=== PATIENT | male | born 1955 | race Caucasian/White ===

== ENCOUNTER → 2017-06-05 | Day surgery (SDC) | payer BC ==
[~2017-06-05] MED LIST: AMLODIPINE BESY10 MG PO; COMBIVENT RESPIM4 GM IH; FAMOTIDINE20 MG PO; FENTANYL CITRATE/PF 100MCG/2 ML INJ ONE; KLOR-CON 1010 MEQ PO; LASIX20 MG PO; LISINOPRIL10 MG PO; MELOXICAM7.5 MG PO; MIDAZOLAM HCL 2 MG/2 ML VIAL ONE; NORCO 10-325 T1 EACH PO; PROAIR HFA INH8.5 GM INH; PROPOFOL IV EMULSION 10 MG/ML 50 ML VIAL ONE; SYMBICORT 80-10.2 GM INH
--- OUTSIDE RECORDS SUMMARY | 2017-06-05 09:49 | XMS REPORT ---
Author Organization Unknown Address [address] [place] [address] Phone [phone] Care Team Providers Care Medical Imaging Tech Name Role Phone NIMCO CRUZ MD 107 [phone] Allergies Code Code System Name Reaction Severity Status Onset Sulfa (Sulfonamide Antibiotics) Hives Moderate to Severe Active Medications Name Status Start Date Stop Date Adult Low Dose Aspirin 81 mg tablet,delayed release Take 1 tablet every day by oral route for 90 days. Active Not available amlodipine 10 mg tablet Active Not available amoxicillin 500 mg capsule Completed 05/14/2017 amoxicillin 875 mg tablet Completed 01/04/2017 azithromycin 250 mg tablet Completed 02/19/2017 benzonatate 100 mg capsule Completed 01/04/2017 furosemide 20 mg tablet Active Not available furosemide 40 mg tablet Completed 05/14/2017 guaifenesin ER 600 mg tablet, extended release 12 hr Take 1 tablet every 12 hours by oral route. Completed 05/28/2017 hydrocodone 10 mg-acetaminophen 325 mg tablet Completed 05/14/2017 hydrocodone 10 mg-chlorpheniramine 8 mg/5 mL oral susp extend.rel 12hr Completed 05/14/2017 hydrocodone 5 mg-acetaminophen 325 mg tablet Take 1 tablet every 4-6 hours by oral route for 90 days. Completed 2017 hydrocodone 7.5 mg-acetaminophen 325 mg tablet Completed 02/19/2017 ipratropium-albuterol 0.5 mg-3 mg(2.5 mg base)/3 mL nebulization soln Active Not available Klor-Con Sprinkle 10 mEq capsule,extended release Active Not available levofloxacin 500 mg tablet Completed 01/04/2017 lisinopril 40 mg tablet Take 1 tablet twice a day by oral route. Active Not available meloxicam 15 mg tablet Active Not available methylprednisolone 4 mg tablets in a dose pack Active Not available Mobic 7.5 mg tablet Take 1 tablet every day by oral route for 90 days. Completed 02/14/2017 omeprazole 40 mg capsule,delayed release Completed 05/14/2017 ProAir HFA 90 mcg/actuation aerosol inhaler Active Not available quinapril 40 mg tablet Completed 05/14/2017 Symbicort 80 mcg-4.5 mcg/actuation HFA aerosol inhaler Active Not available verapamil ER (SR) 240 mg tablet,extended release Completed 05/14/2017 Problems Name Status Onset Date Source Hypertriglyceridemia Active 09/26/2016 Obstructive Sleep Apnea of Adult Active 09/26/2016 Benign Essential Hypertension Active 09/26/2016 Asthma Active 09/26/2016 Gastroesophageal Reflux Disease Active 01/04/2017 Morbid Obesity Active 02/19/2017 Osteoarthritis of Knee Active 02/19/2017 Degeneration of Lumbar Intervertebral Disc Active 02/19/2017 Peripheral Edema Active 02/19/2017 Body Mass Index 40+ - Severely Obese Active 02/19/2017 Procedures Date Name Performed by Back Surgery Information not available 12/15/2016 XR, Chest, 2 View [facility]- [address] [address] (Work Place) Lab Results Date Name Specimen Result Interpretation Description Value Range Status Address 02/19/2017 Hepatitis C Virus RNA, Quant, PCR, Serum or Plasma Normal Hepatitis C Antibody non-reactive non-reactive Final [facility]: [address] Normal Signal to Cut-off 0.03 <1.00 Final [facility]: [address] Su[address] t[address]re [address] 02/19/2017 CBC W/ Auto Diff Wbc 6.04 x10*3/L 4.23-9.07 x10*3/ L Final [facility]: [address] Rbc 5.20 10*12/L 4.63-6.08 10*12/L Final [facility]: [address] Hemoglobin 15.20 g/dL 13.70-17.50 g/dL Final [facility]: [address] Hematocrit 46.2 % 40.1-51.0 % Final [facility]: [address]055 Su[address] tigre [address] Mcv 88.8 fL 80.0-100.0 fL Final [facility]: [address] Mch 29.2 pg 25.7-32.2 pg Final [facility]: 9055 Suellen Velasquez [place] Mchc 32.9 g/dL 32.3-36.5 g/dL Final [facility]: [address] Su[address] Velasquez [place] High RDW-SD 45.0 fL 35.1-43.9 fL Final [facility]: [address] Su[address] Velasquez [place] Low Platelet Count 154.0 k/uL 163.0-337.0 k/uL Final [facility]: 9055 Su[address] Velasquez [place] High Mpv 13.7 fL 7.5-11.5 fL Final [facility]: [address] [place] Neut% 44.0 % 34.0-67.9 % Final [facility]: 9055 Su[address] Velas[address] [place] Lymph% 38.9 % 21.8-53.1 % Final [facility]: [address] Su[address] Velas[address] [place] Mon% 11.4 % 5.3-12.2 % Final [facility]: [address] Su[address] Velas[address] [place] Eos% 5.5 % 0.8-7.0 % Final [facility]: [address] Su[address] Velasquez, [place] Baso% 0.2 % 0.2-1.2 % Final [facility]: [address] Su[address] Velas[address] [place] Neut# 2.7 x10*3/L 1.8-5.4 x10*3/L Final [facility]: [address] Su[address] Velas[address] [place] Lymph# 2.4 x10*3/L 1.3-3.6 x10*3/L Final [facility]: [address] Su[address] Velas[address] [place] Mon# 0.7 x10*3/L 0.3-0.8 x10*3/L Final [facility]: [address] Su[address] Velas[address] [place] Eos# 0.33 x10*3/L 0.04-0.54 x10*3/L Final [facility]: [address]055 Su[address] Velasquez [place] Baso# 0.01 x10*3/L 0.01-0.08 x10*3/L Final [facility]: [address] Su[address] Velasquez [place] 02/19/2017 CMP, Serum or Plasma Alt 30 U/L 0-55 U/L Final [facility]: [address] Su[address] Pearson [address] Ast 21 U/L 5-34 U/L Final [facility]: [address] Su[address] Pearson [address] Bun 21.3 mg/dL 8.4-25.7 mg/dL Final [facility]: 9055 Su[address] Pearson [address] Alk Phos 53 unit/L 40-150 unit/L Final [facility]: [address] Su[address] Pearson [address] Glucose 91 mg/dL 70-99 mg/dL Final [facility]: [address]055 Su[address] Pearson [address] Albumin 4.1 g/dL 3.5-5.0 g/dL Final [facility]: [address] Suellen Pearson [address] Creatinine 1.01 mg/dL 0.72-1.25 mg/dL Final [facility]: [address] Su[address] Pearson [address] eGFR Non- >60 mL/min/1.73m2 >60 mL/min/ 1.73m2 Final [facility]: [address] Su[address] Pearson [address] High Total Bilirubin 1.4 mg/dL 0.2-1.2 mg/dL Final [facility]: [address] Suellen Pearson [address] eGFR - >60 mL/min/1.73m2 >60 mL/min/1.73m2 Final [facility]: [address] Suele[address] Pearson [address] Sodium 145 mEq/L 136-145 mEq/L Final [facility]: [address]055 Suellen Pearson [address] Low Potassium 3.2 mEq/L 3.5-5.1 mEq/L Final [facility]: [address] Suellen Pearson [address] Chloride 105 mmol/L 98-107 mmol/L Final [facility]: [address]055 Suellen Pearson [address] Total Protein 6.5 g/dL 6.4-8.3 g/dL Final [facility]: [address]055 Suellen Pearson [address] Calcium 9.5 mg/dL 8.8-10.0 mg/dL Final [facility]: [address] Su[address] Pearson [address] Co2 27.7 mmol/L 23.0-31.0 mmol/L Final [facility]: [address] [place] [address], [place] Anion Gap 12 calc Final [facility]: [address] [place] [address], [place] 02/19/2017 Lipid Panel, Serum Hdl 42 mg/dL 40-60 mg/dL Final [facility]: [address] [place] [address], [place] Triglyceride 85 mg/dL 0-149 mg/dL Final [facility]: [address] [place] [address], [place] VLDL Calc. 17 mg/dL Final [facility]: [address] cholesterol/HDL Ratio 4.5 mg/dL Final [facility]: [address] [place] [address], [place] non-HDL Cholesterol Calc. 147 mg/dL 0-160 mg/dL Final [facility]: [address] [place] [address], [place] Cholesterol 189 mg/dL 0-199 mg/dL Final [facility]: [address] LDL Calc. 130 mg/dL 0-130 mg/dL Final [facility]: [address] [place] [address], [place] 02/19/2017 Vitamin D, 25-Hydroxy, Total, Serum Low Vitamin D 25OH 23.3 NG/mL 30.0-96.0 NG/mL Final [facility]: [address] [place] [address], [place] 02/19/2017 HbA1C (Hemoglobin a1C), Blood A1C W/eag 5.2 % 1.0- 5.7 % Final [facility]: [address] Average Blood Glucose 103 mg/dL Final [facility]: [address] [place] [address], [place] 02/19/2017 Urinalysis, Dipstick Color Color nahed [facility]: [address] [place] [address], [place] Color Appearance clear [facility]: [address] Color Glucose negative [facility]: [address] Color Bilirubin moderate [facility]: [address] Color Ketones trace [facility]: [address] [place] [address], [place] Color Specific Dennard 1.025 [facility]: [address] [place] [address], [place] Color Blood negative [facility]: [address]ño [facility] 5, [place] Color PH 5.5 [facility]: [address] [place] [address], [place] Color Protein trace [facility] [address] [facility] 5, [place] Color Urobilinogen 1 [facility]: [address] [facility] 5, [place] Color Nitrites negative [facility]: [address] [facility] 5, [place] Color Leukocytes negative [facility]: [address] [place] [address], [place] 09/11/2016 TSH, Serum or Plasma Tsh 1.134 uIU/mL 0.350-4.940 uIU /mL Final [facility]: [facility]055 [facility] CBC W/ Auto Diff Wbc 7.93 x10*3/L 4.23-9.07 x10*3/ L Final [facility]: [address] Su[address] Pearson [address] Rbc 5.41 10*12/L 4.63-6.08 10*12/L Final [facility]: [address] Su[address] Pearson [address] Hemoglobin 15.70 g/dL 13.70-17.50 g/dL Final [facility]: [address] Su[address] Pearson [address] Hematocrit 47.8 % 40.1-51.0 % Final [facility]: [address] Su[address] Lin [address] [place] [address] Mcv 88.4 fL 80.0-100.0 fL Final [facility]: [address] Su[address] Pearson [address] Mch 29.0 pg 25.7-32.2 pg Final [facility]: 9055 [facility] Mchc 32.8 g/dL 32.3-36.5 g/dL Final [facility]: [address] Su[address] Lin [address] [place] [address] High RDW-SD 44.0 fL 35.1-43.9 fL Final [facility]: 9055 [facility] Low Platelet Count 162.0 k/uL 163.0-337.0 k/uL Final [facility]: [address] Su[address] Lin [address] [place] [address] High Mpv 13.4 fL 7.5-11.5 fL Final [facility]: 9055 [facility] Neut% 56.8 % 34.0-67.9 % Final [facility]: [address] [place] Lymph% 29.1 % 21.8-53.1 % Final [facility]: [address] Velas[address] [place] Mon% 7.3 % 5.3-12.2 % Final [facility]: 9055 [facility] Eos% 6.4 % 0.8-7.0 % Final [facility]: [address], [place] Baso% 0.4 % 0.2-1.2 % Final [facility]: [address] [place] Neut# 4.5 x10*3/L 1.8-5.4 x10*3/L Final [facility]: 55 [facility] Lymph# 2.3 x10*3/L 1.3-3.6 x10*3/L Final [facility]: 9055 [facility] Mon# 0.6 x10*3/L 0.3-0.8 x10*3/L Final [facility]: [address] Su[address] Lin [address] [place] [address] Eos# 0.51 x10*3/L 0.04-0.54 x10*3/L Final [facility]: 9055 [facility] Baso# 0.03 x10*3/L 0.01-0.08 x10*3/L Final [facility]: 9[address] [facility] 09/11/2016 CMP, Serum or Plasma Alt 20 U/L 0-55 U/L Final [facility]: [address] Su[address] Pearson [address] Ast 17 U/L 5-34 U/L Final [facility]: 9055 [facility] Bun 14.2 mg/dL 8.4-25.7 mg/dL Final [facility]: [address] Su[address] Pearson [address] Alk Phos 51 unit/L 40-150 unit/L Final [facility]: [address] Suellen Pearson [address] Glucose 94 mg/dL 70-99 mg/dL Final [facility]: 9055 [facility] Albumin 4.0 g/dL 3.5-5.0 g/dL Final [facility]: [facility] Creatinine 1.25 mg/dL 0.72-1.25 mg/dL Final [facility]: [address] Su[address] Velas[address], [place] Low eGFR Non- 59 mL/min/1.73m2 >60 mL/min/ 1.73m2 Final [facility]: 9055 [facility] High Total Bilirubin 1.3 mg/dL 0.2-1.2 mg/dL Final [facility]: [address] Su[address] Lin [address] [place] [address] eGFR - >60 mL/min/1.73m2 >60 mL/min/1.73m2 Final [facility]: 9[address] [facility] Sodium 145 mEq/L 136-145 mEq/L Final [facility]: [address] Su[address] Pearson [address] High Potassium 5.3 mEq/L 3.5-5.1 mEq/L Final [facility]: [address] Su[address] Pearson [address] Chloride 106 mmol/L 98-107 mmol/L Final [facility]: [address] Su[address] Lin [address] [place] [address] Total Protein 7.1 g/dL 6.4-8.3 g/dL Final [facility]: 9055 [facility] Calcium 9.8 mg/dL 8.8-10.0 mg/dL Final [facility]: 9055 [facility] Co2 24.7 mmol/L 23.0-31.0 mmol/L Final [facility]: [address] Pearson [address] Anion Gap 14 calc Final [facility]: [address] Su[address] Velasquez, [place] 09/11/2016 Lipid Panel, Serum Hdl 52 mg/dL 40-60 mg/dL Final [facility]: 9[address] [facility] High Triglyceride 196 mg/dL 0-149 mg/dL Final [facility]: [address] Su[address] Pearson [address] VLDL Calc. 39 mg/dL Final [facility]: [address] Su[address] Pearson [address] cholesterol/HDL Ratio 4 mg/dL Final [facility]: [address] non-HDL Cholesterol Calc. 151 mg/dL 0-160 mg/dL Final [facility]: [address] High Cholesterol 203 mg/dL 0-199 mg/dL Final [facility]: [address] LDL Calc. 112 mg/dL 0-130 mg/dL Final [facility]: [address] 09/11/2016 PSA, Serum or Plasma PSA, Total 0.51 NG/mL <4.00 NG/ mL Final [facility]: [address] Urinalysis, Dipstick Color Color yellow [facility]: [address] [place] [address], [place] Color Appearance clear [facility]: [address] [place] [address] , [place] Color Glucose negative [facility]: [address] [place] [address] , [place] Color Bilirubin negative [facility]: [address] [place] [address], [place] Color Ketones negative [facility]: [address] [place] [address] , [place] Color Specific Dennard 1.015 [facility]: [address] [place] [address], [place] Color Blood negative [facility]: [address] [place] [address], [place] Color PH 5.0 [facility]: [address] [place] [address], [place] Color Protein negative [facility]: [address] Color Urobilinogen 0.2 [facility]: [address] [place] [address] , [place] Color Nitrites negative [facility]: [address] Color Leukocytes negative [facility]: [address] [place] [address], [place] Past Encounters 05/28/2017 Benign Essential Hypertension; Laceration of Finger; Morbid Obesity; Terminal Esophageal Web; Esophageal Dysphagia Omega Harrison Jr, MD: [address] [place], [facility] 5, [place] [address], Ph. 05/14/2017 Benign Essential Hypertension; Peripheral Edema; Hypokalemia; Asthma; Upper Respiratory Infection; Body Mass Index 40+ - Severely Obese; Immunization Refused Omega Harrison Jr, MD: [address] [address], [place]. 02/21/2017 Upper Respiratory Infection; Asthma; Reactive Airway Disease Omega Harrison Jr, MD: [address] [address], [place]. 02/19/2017 Adult Health Examination; Hepatitis C Screening; Depression Screening; Screening for Malignant Neoplasm of Colon; At Risk for Falls; Immunization Refused; Benign Essential Hypertension; Asthma; Peripheral Edema; Peripheral Venous Insufficiency; Degeneration of Lumbar Intervertebral Disc; Osteoarthritis of Knee; Body Mass Index 40+ - Severely Obese; Morbid Obesity Omega Harrison Jr, MD: [address] [place], [address] [address], Ph. 02/14/2017 Serous Otitis Media; Benign Essential Hypertension; Upper Respiratory Infection Omega Harrison Jr, MD: [address] [place], [address] [address], Ph. 01/04/2017 Obstructive Sleep Apnea of Adult; Benign Essential Hypertension; Asthma; Hypertriglyceridemia; Gastroesophageal Reflux Disease; Immunization Dejuan Rubin MD: [address], [address] [address], [place]. 09/26/2016 Essential Hypertension; Upper Respiratory Infection; Asthma Omega Harrison Jr, MD: [address] [place], [address] [address], Ph. Social History Smoking Status Former Smoker Notes: quit 1997 Vaccine List Vaccine Type Influenza, injectable, MDCK, quadrivalent 01/04/20170.5 mL Td (adult), adsorbed 05/28/20170.5 mL Plan of Care Reminders Provider Appointments None recorded. Lab None recorded. Referral None recorded. Procedures None recorded. Surgeries None recorded. Imaging None recorded. Vitals 05/28/2017 03:30PM Est Patient Height Weight BMI Blood Pressure 6 ft 335 lbs 45.4 kg/m2 158/100 mm[Hg] 05/14/2017 03:30PM Est Patient Height Weight BMI Blood Pressure 6 ft 333 lbs 45.2 kg/m2 148/82 mm[Hg] 02/21/2017 01:45PM Est Patient Height Weight BMI Blood Pressure 6 ft 324 lbs 43.9 kg/m2 110/80 mm[Hg] 02/19/2017 08:45AM ROLL ICER/EST CPX Height Weight BMI Blood Pressure 6 ft 324 lbs 43.9 kg/m2 120/80 mm[Hg] 02/14/2017 11:45AM Est Patient Height Weight BMI Blood Pressure 6 ft 325 lbs 44.1 kg/m2 (1) 140/100 mm[Hg] (2) 144/90 mm[Hg] 01/04/2017 09:15AM Est Patient Height Weight BMI Blood Pressure 6 ft 336 lbs 45.6 kg/m2 120/80 mm[Hg] 09/26/2016 03:15PM Work In Same Day Height Weight BMI Blood Pressure 6 ft 332.6 lbs 45.1 kg/m2 160/84 mm[Hg]
== END | disposition home or self-care (01) ==
LOC: OR 09:47
PROVIDERS: ATTEND Internal Medicine Gastroenterology
DX: K22.2 Esophageal obstruction (principal); K31.7 Polyp of stomach and duodenum; K29.50 Unspecified chronic gastritis without bleeding; K29.80 Duodenitis without bleeding; K21.9 Gastro-esophageal reflux disease without esophagitis; K44.9 Diaphragmatic hernia without obstruction or gangrene; K22.10 Ulcer of esophagus without bleeding; K57.30 Diverticulosis of large intestine without perforation or abscess without bleeding; K64.8 Other hemorrhoids; K64.4 Residual hemorrhoidal skin tags; E66.01 Morbid (severe) obesity due to excess calories; G47.30 Sleep apnea, unspecified; I10 Essential (primary) hypertension; R00.1 Bradycardia, unspecified; I45.10 Unspecified right bundle-branch block; N20.0 Calculus of kidney; R16.0 Hepatomegaly, not elsewhere classified; J45.909 Unspecified asthma, uncomplicated; Z01.810 Encounter for preprocedural cardiovascular examination; Z68.42 Body mass index [BMI] 45.0-49.9, adult; Z87.891 Personal history of nicotine dependence
CPT/HCPCS: 43239; 43249; 45378; 93005; C1726; J2250; 43450

== ENCOUNTER → 2017-08-03 | Outpatient (CLI) | payer BC ==
[~2017-08-03] MED LIST changes: -FENTANYL CITRATE/PF 100MCG/2 ML INJ ONE; -MIDAZOLAM HCL 2 MG/2 ML VIAL ONE; -PROPOFOL IV EMULSION 10 MG/ML 50 ML VIAL ONE
--- NOTE | 2017-08-03 11:22 | Diagnostic Imaging Report ---
PROCEDURE:X-RAY ESOPHAGRAM COMPARISON:None. INDICATIONS:Patient reports upper esophageal stricture status post balloon dilatation Fluoroscopy time: 1.1 minutes Air Kerma: 81.3 mGy FINDINGS:The patient was given air crystals, and barium drink in upright and prone positions. Multiple images of the hypopharynx, esophagus, and proximal stomach were obtained. The vallecullae and pyriform sinuses are symmetric.. Swallowing mechanism: Grossly normal Esophagus: Normal mucosal appearance. Normal peristalsis. Brisk passage of barium into the stomach without evidence of stricture. Gastroesophageal Junction: Small hiatal hernia. No gastroesophageal reflux elicited. Stomach: Grossly normal mucosa, though under distended. Impression: Small sliding hiatal hernia. Otherwise unremarkable barium esophagram. No fixed esophageal stricture identified. Dictated by: Navneet Levin M.D. on 08/03/2017 at 11:25 Electronically approved by: Navneet Levin M.D. on 08/03/2017 at 11:25
== END ==
LOC: DX 09:06
PROVIDERS: ATTEND Internal Medicine Gastroenterology
DX: K22.2 Esophageal obstruction (principal)
CPT/HCPCS: 74220

== ENCOUNTER → 2017-08-07 | Day surgery (SDC) | payer BC ==
[2017-07-26 13:58] LABS: BASOPHILS % 0.3 % (0.0-1.0); EOSINOPHILS # (AUTO) 0.4 (0.0-0.4); HEMATOCRIT 46.9 % (38.2-49.6); HEMOGLOBIN 15.4 g/dL (14.0-18.0); LYMPHOCYTES # (AUTO) 2.6 (1.0-3.2); LYMPHOCYTES % 28.1 % (18.0-39.1); MEAN CORPUSCULAR HEMOGLOBIN 28.8 pg (28-32); MEAN CORPUSCULAR HGB CONC 32.8 g/dL (31-35); MEAN CORPUSCULAR VOLUME 87.7 fL (81-99); MONOCYTES # (AUTO) 0.8 (0.2-0.8); MONOCYTES % 8.3 % (4.4-11.3); NEUTROPHILS # (AUTO) 5.5 (2.1-6.9); NEUTROPHILS % 58.9 % (38.7-80.0); PLATELET COUNT 159 x10e3/uL (140-360); RED BLOOD COUNT 5.35 x10e6/uL (4.3-5.7); RED CELL DISTRIBUTION WIDTH 13.9 % (11.7-14.4)
[~2017-08-07] MED LIST changes: +GLYCOPYRROLATE INJ 1MG/ 5 ML SYR ONE; +KETAMINE HCL INJ 50 MG/ML 10 ML VIAL ONE; +MIDAZOLAM HCL 2 MG/2 ML VIAL ONE; +PROPOFOL IV EMULSION 10 MG/ML 50 ML VIAL ONE
--- OUTSIDE RECORDS SUMMARY | 2017-08-07 09:22 | XMS REPORT ---
Author Author [facility] Address Unknown Phone Unavailable Care Team Providers Care Radio Adjuster Name Role Phone NIMCO CRUZ Unavailable Unavailable Problems This patient has no known problems. Allergies, Adverse Reactions, Alerts This patient has no known allergies or adverse reactions. Medications This patient has no known medications. Results Test Description Test Time Test Comments Text Results Atomic Results Result Comments ESOPHAGRAM [place] [address] Patient Name: RODRIGO GUARDADO MR #: [id number] : 1955 Age/Sex: 61/M Req #: [id number] Adm Physician: Ordered by: NIMCO CRUZ MD Report #: [id number] Location: DX Room/Bed: Procedure: [id number] DX/ESOPHAGRAM Exam Date: 08/03/17 Exam Time: 1000 REPORT STATUS: Signed PROCEDURE: X-RAY ESOPHAGRAM COMPARISON: None. INDICATIONS: Patient reports upper esophageal stricture status post balloon dilatation Fluoroscopy time: 1.1 minutes Air Kerma: 81.3 mGy FINDINGS: The patient was given air crystals, and barium drink in upright and prone positions. Multiple images of the hypopharynx, esophagus, and proximal stomach were obtained. The vallecullae and pyriform sinuses are symmetric.. Swallowing mechanism: Grossly normal Esophagus: Normal mucosal appearance. Normal peristalsis. Brisk passage of barium into the stomach without evidence of stricture. Gastroesophageal Junction: Small hiatal hernia. No gastroesophageal reflux elicited. Stomach: Grossly normal mucosa, though under distended. Impression: Small sliding hiatal hernia. Otherwise unremarkable barium esophagram. No fixed esophageal stricture identified. Dictated by: Nathaly Willson M.D. on at 11:25 Electronically approved by: Nathaly Willson M.D. on 2017 at 11:25 Dictated By: NATHALY WILLSON MD 1125 Transcribed By: RENAY on 08/03/17 1125 COPY TO: NIMCO CRUZ MD
== END | disposition home or self-care (01) ==
LOC: OR 09:19
PROVIDERS: ATTEND Internal Medicine Gastroenterology
DX: K22.2 Esophageal obstruction (principal); K31.7 Polyp of stomach and duodenum; K22.10 Ulcer of esophagus without bleeding; K22.8 Other specified diseases of esophagus; K44.9 Diaphragmatic hernia without obstruction or gangrene; K21.9 Gastro-esophageal reflux disease without esophagitis; K57.90 Diverticulosis of intestine, part unspecified, without perforation or abscess without bleeding; K64.8 Other hemorrhoids; K64.4 Residual hemorrhoidal skin tags; K76.0 Fatty (change of) liver, not elsewhere classified; I10 Essential (primary) hypertension; G47.33 Obstructive sleep apnea (adult) (pediatric); J45.909 Unspecified asthma, uncomplicated; H91.90 Unspecified hearing loss, unspecified ear; Z88.2 Allergy status to sulfonamides; Z01.812 Encounter for preprocedural laboratory examination; Z68.42 Body mass index [BMI] 45.0-49.9, adult; Z87.891 Personal history of nicotine dependence
CPT/HCPCS: 36415; 43239; 43251; 85025; J2250; J3490

== ENCOUNTER 2021-02-06 09:28 | Emergency (ER) | payer MEDICARE, BC ==
[~2021-02-06] VITALS: Ht 182.9 cm; Wt 174.6 kg
[~2021-02-06 09:28] MED LIST changes: -GLYCOPYRROLATE INJ 1MG/ 5 ML SYR ONE; -KETAMINE HCL INJ 50 MG/ML 10 ML VIAL ONE; -MIDAZOLAM HCL 2 MG/2 ML VIAL ONE; -PROPOFOL IV EMULSION 10 MG/ML 50 ML VIAL ONE
[2021-02-06 10:13] LABS: BASOPHILS % 0.4 % (0.0-1.0); EOSINOPHILS # (AUTO) 0.3 (0.0-0.4); HEMATOCRIT 48.3 % (38.2-49.6); HEMOGLOBIN 15.8 g/dL (14.0-18.0); LYMPHOCYTES # (AUTO) 2.4 (1.0-3.2); LYMPHOCYTES % 23.8 % (18.0-39.1); MEAN CORPUSCULAR HEMOGLOBIN 29.4 pg (28-32); MEAN CORPUSCULAR HGB CONC 32.7 g/dL (31-35); MEAN CORPUSCULAR VOLUME 89.9 fL (81-99); MONOCYTES # (AUTO) 0.9 (0.2-0.8); MONOCYTES % 9.3 % (4.4-11.3); NEUTROPHILS # (AUTO) 6.3 (2.1-6.9); NEUTROPHILS % 62.8 % (38.7-80.0); PLATELET COUNT 123 x10e3/uL (140-360); RED BLOOD COUNT 5.37 x10e6/uL (4.3-5.7)
[2021-02-06 10:27] LABS: ALBUMIN/GLOBULIN RATIO 1.3 (0.8-2.0); ANION GAP 17.5 mmol/L (8-16); CALCIUM 9.1 mg/dL (8.4-10.2); CREATININE, SERUM 1.28 mg/dL (0.72-1.25); POTASSIUM 3.5 mmol/L (3.5-5.1)
[2021-02-06] MEDS ORDERED: IOPAMIDOL 370 MG/ML 200 ML INFUS..BTL INJ ONE (11:13)
[2021-02-06] MEDS ORDERED: SODIUM CHLORIDE 0.9% 50ML 50 ML ONE (11:13)
[2021-02-06] MEDS ORDERED: ENOXAPARIN SODIUM INJ 100 MG/ML SYR SC SCH (11:30)
[2021-02-06] MEDS ORDERED: PROTONIX20 MG PO (11:49)
[2021-02-06 13:08] VITALS: BP 114/75
== END 2021-02-06 13:55 | disposition other institution (70) ==
LOC: ER 09:38
DX: R06.02 Shortness of breath (principal); I26.92 Saddle embolus of pulmonary artery without acute cor pulmonale; I10 Essential (primary) hypertension; J44.9 Chronic obstructive pulmonary disease, unspecified; J45.909 Unspecified asthma, uncomplicated; G47.30 Sleep apnea, unspecified; Z20.822 Contact with and (suspected) exposure to COVID-19; R94.31 Abnormal electrocardiogram [ECG] [EKG]
CPT/HCPCS: 36415; 71045; 71260; 80053; 83880; 84484; 85025; 85379; 93005; 99284; J1650; Q9967; U0002

== ENCOUNTER 2021-04-12 10:48 | Inpatient (IN) | payer BC, MEDICARE ==
[~2021-04-12] VITALS: Ht 182.9 cm; Wt 176.0 kg
[~2021-04-12 10:48] MED LIST changes: +PROTONIX20 MG PO
[2021-04-12] MEDS ORDERED: ONDANSETRON HCL INJ 2MG/ML 2ML 2 MG/ML VIAL IV STA (11:15)
[2021-04-12] MEDS ORDERED: SODIUM CHLORIDE 0.9% 1000ML 1,000 ML IV STA ×2 (11:15→14:25)
[2021-04-12] MEDS ORDERED: Morphine 4mg Syringe 4 MG/ML INJ IV STA (11:15)
[2021-04-12 11:37] LABS: BASOPHILS % 0.1 % (0.0-1.0); EOSINOPHILS % 0.1 % (0.0-6.0); HEMATOCRIT 40.3 % (38.2-49.6); LYMPHOCYTES # (AUTO) 1.8 (1.0-3.2); LYMPHOCYTES % 12.4 % (18.0-39.1); MEAN CORPUSCULAR HEMOGLOBIN 29.3 pg (28-32); MEAN CORPUSCULAR HGB CONC 32.3 g/dL (31-35); MEAN CORPUSCULAR VOLUME 90.8 fL (81-99); MONOCYTES # (AUTO) 1.3 (0.2-0.8); MONOCYTES % 9.1 % (4.4-11.3); NEUTROPHILS # (AUTO) 11.4 (2.1-6.9); NEUTROPHILS % 77.8 % (38.7-80.0); PLATELET COUNT 152 x10e3/uL (140-360); RED BLOOD COUNT 4.44 x10e6/uL (4.3-5.7); RED CELL DISTRIBUTION WIDTH 13.9 % (11.7-14.4)
[2021-04-12 12:01] LABS: INR 2.69; PROTHROMBIN TIME 30.1 seconds (11.9-14.5)
[2021-04-12 12:02] LABS: PARTIAL THROMBOPLASTIN TIME 64.1 seconds (23.8-35.5)
[2021-04-12 12:06] LABS: CREATINE KINASE MB < 1.00 ng/mL (0-4.3)
[2021-04-12 12:13] LABS: ALANINE AMINOTRANSFERASE 20 IU/L (0-55); ALBUMIN 3.7 g/dL (3.5-5.0); ALBUMIN/GLOBULIN RATIO 1.1 (0.8-2.0); ALKALINE PHOSPHATASE 36 IU/L (40-150); ANION GAP 15.7 mmol/L (8-16); BLOOD UREA NITROGEN 15 mg/dL (7-26); BUN/CREATININE RATIO 13 (6-25); CALCIUM 9.1 mg/dL (8.4-10.2); CARBON DIOXIDE 23 mmol/L (22-29); CHLORIDE 101 mmol/L (98-107); CREATINE KINASE 111 IU/L (30-200); CREATININE, SERUM 1.19 mg/dL (0.72-1.25); EST GLOMERULAR FILTRATION RATE 61 ML/MIN (60-); GLUCOSE 145 mg/dL (74-118); POTASSIUM 3.7 mmol/L (3.5-5.1); SODIUM 136 mmol/L (136-145)
[2021-04-12] MEDS ORDERED: IOPAMIDOL 370 MG/ML 200 ML INFUS..BTL INJ ONE (12:37)
[2021-04-12] MEDS ORDERED: SODIUM CHLORIDE 0.9% 50ML 50 ML ONE (12:37)
[2021-04-12] MEDS ORDERED: Morphine 4mg Syringe 4 MG/ML INJ IV ONE (14:30)
[2021-04-12] MEDS ORDERED: ONDANSETRON HCL INJ 2MG/ML 2ML 2 MG/ML VIAL IV ONE (14:30)
[2021-04-12 14:38] LABS: CLARITY,URINE SL CLOUDY (CLEAR); COLOR,URINE AMBER (YELLOW); KETONES,URINE NEGATIVE (NEGATIVE); LEUKOCYTE ESTERASE ,URINE NEGATIVE (NEGATIVE); NITRITE,URINE NEGATIVE (NEGATIVE); PROTEIN,URINE DIPSTICK TRACE (NEGATIVE); URINE UROBILINOGEN 0.2 mg/dL (0.2 - 1)
[2021-04-12] MEDS: CEFTRIAXONE 1 GM in SODIUM CHLORIDE 0.9% 50ML 50 ML IV SCH (14:40)
[2021-04-12 14:50] LABS: BACTERIA,URINE MANY /HPF; MUCUS,URINE MANY (RARE); WBC,URINE (MAN) 0-5 /HPF (0-5)
[2021-04-12] MEDS ORDERED: DEXAMETHASONE SOD PHOS 10 MG/1 ML VIAL IV ONE (15:30)
[2021-04-12] MEDS: ALBUTEROL SULF 0.083% NEB SOLN 3 ML NEB NEB SCH ×3 (15:30→22:35)
[2021-04-12] MEDS: IPRATROPIUM BROMIDE 0.02% 2.5 ML NEB NEB SCH ×2 (15:45→18:40)
[2021-04-12] MEDS ORDERED: KETOROLAC TROMETHAMINE 30 MG/ML VIAL IV STA (16:24)
[2021-04-12] MEDS ORDERED: KETOROLAC TROMETHAMINE 30 MG/ML VIAL ONE (16:40)
[2021-04-12] MEDS: SODIUM CHLORIDE 0.9% 1000ML 1,000 ML IV SCH (16:40)
[2021-04-12 20:06] LABS: CREATINE KINASE MB 0.8 ng/mL (0-5.0)
[2021-04-12 20:09] VITALS: BP 133/70
[2021-04-12 21:00] VITALS: BP 133/70
[2021-04-12 23:30] VITALS: BP 133/70
[2021-04-12] MEDS ORDERED: JANTOVEN3 MG PO (23:41)
[2021-04-12] MEDS ORDERED: IPRATROPIUM NEB (23:46)
[2021-04-12] MEDS ORDERED: SYMBICORT 16010.2 GM INH (23:46)
[2021-04-12] MEDS ORDERED: ALBUTEROL NEB (23:46)
[2021-04-13] VITALS (7 sets, daily range): BP systolic 112–136; BP diastolic 57–70
[2021-04-13] MEDS ORDERED: PSEUDOEPHEDRINE30 MG PO (01:03)
[2021-04-13] MEDS ORDERED: FLONASE ALLERG9.9 ML INH (01:03)
[2021-04-13] MEDS: IPRATROPIUM BROMIDE 0.02% 2.5 ML NEB NEB SCH ×2 (02:24→07:00)
[2021-04-13] MEDS: ALBUTEROL SULF 0.083% NEB SOLN 3 ML NEB NEB SCH ×2 (02:24→07:00)
[2021-04-13 04:02] LABS: CREATINE KINASE MB 1.1 ng/mL (0-5.0)
[2021-04-13] MEDS: SODIUM CHLORIDE 0.9% 1000ML 1,000 ML IV SCH (04:50)
[2021-04-13 05:27] LABS: BASOPHILS % 0.1 % (0.0-1.0); HEMATOCRIT 36.6 % (38.2-49.6); HEMOGLOBIN 11.5 g/dL (14.0-18.0); LYMPHOCYTES # (AUTO) 1.1 (1.0-3.2); MEAN CORPUSCULAR HGB CONC 31.4 g/dL (31-35); MEAN CORPUSCULAR VOLUME 92.2 fL (81-99); MONOCYTES % 7.3 % (4.4-11.3); NEUTROPHILS # (AUTO) 11.3 (2.1-6.9); NEUTROPHILS % 84.1 % (38.7-80.0); PLATELET COUNT 143 x10e3/uL (140-360); RED BLOOD COUNT 3.97 x10e6/uL (4.3-5.7); RED CELL DISTRIBUTION WIDTH 13.6 % (11.7-14.4)
[2021-04-13 05:55] LABS: ALBUMIN 2.9 g/dL (3.5-5.0); ALBUMIN/GLOBULIN RATIO 0.8 (0.8-2.0); ANION GAP 14.8 mmol/L (8-16); CALCIUM 8.7 mg/dL (8.4-10.2); CREATININE, SERUM 1.21 mg/dL (0.72-1.25); POTASSIUM 3.8 mmol/L (3.5-5.1)
[2021-04-13 06:22] LABS: CREATINE KINASE MB 1.3 ng/mL (0-5.0)
[2021-04-13] MEDS: CEFTRIAXONE 1 GM in SODIUM CHLORIDE 0.9% 50ML 50 ML IV SCH ×3 (08:36→20:54)
[2021-04-13] MEDS ORDERED: METHYLPREDNISOLONE SOD SUCC 40 MG/ML VIAL 1ML IV SCH (09:15)
[2021-04-13] MEDS: ALBUTEROL/IPRATROPIUM 3 ML NEB NEB SCH ×3 (09:15→19:25)
[2021-04-13] MEDS ORDERED: ALBUTEROL/IPRATROPIUM 3 ML NEB NEB PRN (09:15)
[2021-04-13] MEDS ORDERED: CELECOXIB 100 MG CAP PO PRN (09:30)
[2021-04-13] MEDS: BUDESONIDE/FORMOTEROL 160/4.5MCG INHALER INH SCH (09:50)
[2021-04-13] MEDS: METHYLPREDNISOLONE SOD SUCC 40 MG/ML VIAL 1ML IV SCH ×2 (10:05→20:54)
[2021-04-13] MEDS: AMLODIPINE BESYLATE 10 MG TAB PO SCH (10:05)
[2021-04-13] MEDS ORDERED: WARFARIN SOD 5 MG TAB PO ONE (10:15)
[2021-04-13] MEDS: LISINOPRIL 20 MG TAB PO SCH (16:14)
[2021-04-13] MEDS ORDERED: BUDESONIDE/FORMOTEROL 160/4.5MCG INHALER INH SCH (19:00)
[2021-04-13] MEDS: HYDROCODONE/APAP 10MG-325MG TAB PO PRN (21:00)
[2021-04-13] MEDS ORDERED: WARFARIN SOD 3 MG TAB PO SCH (21:00)
[2021-04-13] MEDS: GUAIFENESIN/CODEINE 5 ML LIQD PO PRN (23:22)
[2021-04-14] VITALS (9 sets, daily range): BP systolic 113–140; BP diastolic 57–75
[2021-04-14] MEDS: ALBUTEROL/IPRATROPIUM 3 ML NEB NEB SCH ×4 (02:45→19:30)
[2021-04-14 05:00] LABS: BASOPHILS % 0.1 % (0.0-1.0); HEMATOCRIT 35.3 % (38.2-49.6); HEMOGLOBIN 10.9 g/dL (14.0-18.0); LYMPHOCYTES # (AUTO) 1.5 (1.0-3.2); LYMPHOCYTES % 11.8 % (18.0-39.1); MEAN CORPUSCULAR HEMOGLOBIN 28.5 pg (28-32); MEAN CORPUSCULAR HGB CONC 30.9 g/dL (31-35); MEAN CORPUSCULAR VOLUME 92.2 fL (81-99); MONOCYTES # (AUTO) 0.6 (0.2-0.8); MONOCYTES % 4.6 % (4.4-11.3); NEUTROPHILS # (AUTO) 10.2 (2.1-6.9); NEUTROPHILS % 82.8 % (38.7-80.0); PLATELET COUNT 151 x10e3/uL (140-360); RED BLOOD COUNT 3.83 x10e6/uL (4.3-5.7); RED CELL DISTRIBUTION WIDTH 13.6 % (11.7-14.4)
[2021-04-14 05:11] LABS: INR 3.28; PROTHROMBIN TIME 35.2 seconds (11.9-14.5)
[2021-04-14 05:26] LABS: ANION GAP 15.1 mmol/L (8-16); CALCIUM 8.8 mg/dL (8.4-10.2); POTASSIUM 4.1 mmol/L (3.5-5.1)
[2021-04-14] MEDS: BUDESONIDE/FORMOTEROL 160/4.5MCG INHALER INH SCH ×2 (07:00→19:30)
[2021-04-14] MEDS: PANTOPRAZOLE SOD 40 MG TABEC PO SCH (08:20)
[2021-04-14] MEDS: METHYLPREDNISOLONE SOD SUCC 40 MG/ML VIAL 1ML IV SCH (08:20)
[2021-04-14] MEDS: CEFTRIAXONE 1 GM in SODIUM CHLORIDE 0.9% 50ML 50 ML IV SCH (08:20)
[2021-04-14] MEDS: AMLODIPINE BESYLATE 10 MG TAB PO SCH (08:21)
[2021-04-14] MEDS: AZITHROMYCIN 250 MG TAB PO SCH (08:21)
[2021-04-14] MEDS: LISINOPRIL 20 MG TAB PO SCH ×2 (08:21→17:17)
[2021-04-14] MEDS: PIPERACILLIN/TAZOBACTAM 4.5 GM in SODIUM CHLORIDE 0.9% 100 ML IV SCH ×2 (12:32→20:00)
[2021-04-14] MEDS: WARFARIN SOD 2 MG TAB PO SCH (20:52)
[2021-04-14] MEDS: WARFARIN SOD 5 MG TAB PO SCH (20:52)
[2021-04-14] MEDS: HYDROCODONE/APAP 10MG-325MG TAB PO PRN (20:53)
[2021-04-14] MEDS ORDERED: WARFARIN SOD 3 MG TAB PO SCH (21:00)
[2021-04-14] MEDS: GUAIFENESIN/CODEINE 5 ML LIQD PO PRN (22:18)
[2021-04-15] VITALS (8 sets, daily range): BP systolic 123–150; BP diastolic 59–75
[2021-04-15] MEDS: ALBUTEROL/IPRATROPIUM 3 ML NEB NEB SCH ×4 (00:10→19:32)
[2021-04-15] MEDS: PIPERACILLIN/TAZOBACTAM 4.5 GM in SODIUM CHLORIDE 0.9% 100 ML IV SCH ×3 (03:58→20:51)
[2021-04-15 05:13] LABS: BASOPHILS % 0.1 % (0.0-1.0); EOSINOPHILS % 0.1 % (0.0-6.0); HEMATOCRIT 34.6 % (38.2-49.6); LYMPHOCYTES % 19.4 % (18.0-39.1); MEAN CORPUSCULAR HEMOGLOBIN 28.8 pg (28-32); MEAN CORPUSCULAR HGB CONC 31.8 g/dL (31-35); MEAN CORPUSCULAR VOLUME 90.6 fL (81-99); MONOCYTES % 9.3 % (4.4-11.3); NEUTROPHILS # (AUTO) 7.3 (2.1-6.9); NEUTROPHILS % 69.9 % (38.7-80.0); PLATELET COUNT 168 x10e3/uL (140-360); RED BLOOD COUNT 3.82 x10e6/uL (4.3-5.7); RED CELL DISTRIBUTION WIDTH 13.9 % (11.7-14.4)
[2021-04-15 05:20] LABS: INR 3.53; PROTHROMBIN TIME 37.2 seconds (11.9-14.5)
[2021-04-15 05:30] LABS: ANION GAP 13.6 mmol/L (8-16); CALCIUM 8.7 mg/dL (8.4-10.2); CREATININE, SERUM 1.13 mg/dL (0.72-1.25); POTASSIUM 3.6 mmol/L (3.5-5.1)
[2021-04-15] MEDS: PANTOPRAZOLE SOD 40 MG TABEC PO SCH (08:55)
[2021-04-15] MEDS: AMLODIPINE BESYLATE 10 MG TAB PO SCH (08:55)
[2021-04-15] MEDS: METHYLPREDNISOLONE SOD SUCC 40 MG/ML VIAL 1ML IV SCH (08:56)
[2021-04-15] MEDS: AZITHROMYCIN 250 MG TAB PO SCH (08:56)
[2021-04-15] MEDS: LISINOPRIL 20 MG TAB PO SCH ×2 (08:56→16:20)
[2021-04-15] MEDS: BUDESONIDE/FORMOTEROL 160/4.5MCG INHALER INH SCH ×2 (12:21→19:32)
[2021-04-15] MEDS: WARFARIN SOD 2 MG TAB PO SCH (15:44)
[2021-04-15] MEDS: HYDROCODONE/APAP 10MG-325MG TAB PO PRN (18:40)
[2021-04-15] MEDS: WARFARIN SOD 5 MG TAB PO SCH (20:47)
[2021-04-16] VITALS (7 sets, daily range): BP systolic 138–142; BP diastolic 56–85
[2021-04-16] MEDS: ALBUTEROL/IPRATROPIUM 3 ML NEB NEB SCH ×4 (02:15→19:30)
[2021-04-16] MEDS: PIPERACILLIN/TAZOBACTAM 4.5 GM in SODIUM CHLORIDE 0.9% 100 ML IV SCH ×3 (05:06→20:33)
[2021-04-16] MEDS: BUDESONIDE/FORMOTEROL 160/4.5MCG INHALER INH SCH ×2 (06:40→19:30)
[2021-04-16] MEDS: GUAIFENESIN/CODEINE 5 ML LIQD PO PRN ×2 (08:57→13:04)
[2021-04-16] MEDS: AZITHROMYCIN 250 MG TAB PO SCH (08:57)
[2021-04-16] MEDS: METHYLPREDNISOLONE SOD SUCC 40 MG/ML VIAL 1ML IV SCH (08:58)
[2021-04-16] MEDS: LISINOPRIL 20 MG TAB PO SCH ×2 (08:58→16:13)
[2021-04-16] MEDS: PANTOPRAZOLE SOD 40 MG TABEC PO SCH (08:59)
[2021-04-16] MEDS: AMLODIPINE BESYLATE 10 MG TAB PO SCH (09:03)
[2021-04-16 11:28] LABS: INR 3.12; PROTHROMBIN TIME 33.8 seconds (11.9-14.5)
[2021-04-16] MEDS: HYDROCODONE/APAP 10MG-325MG TAB PO PRN ×2 (11:42→21:24)
[2021-04-17] VITALS: BP 145/64
[2021-04-17] MEDS: ALBUTEROL/IPRATROPIUM 3 ML NEB NEB SCH ×4 (00:13→18:35)
[2021-04-17 04:00] VITALS: BP 124/94
[2021-04-17] MEDS: PIPERACILLIN/TAZOBACTAM 4.5 GM in SODIUM CHLORIDE 0.9% 100 ML IV SCH ×3 (04:04→21:10)
[2021-04-17 06:09] LABS: BASOPHILS # (AUTO) 0.1 (0.0-0.1); BASOPHILS % 0.6 % (0.0-1.0); EOSINOPHILS # (AUTO) 0.2 (0.0-0.4); EOSINOPHILS % 1.4 % (0.0-6.0); HEMATOCRIT 36.8 % (38.2-49.6); LYMPHOCYTES # (AUTO) 2.8 (1.0-3.2); MEAN CORPUSCULAR HEMOGLOBIN 28.7 pg (28-32); MEAN CORPUSCULAR HGB CONC 29.9 g/dL (31-35); MEAN CORPUSCULAR VOLUME 96.1 fL (81-99); MONOCYTES # (AUTO) 0.9 (0.2-0.8); MONOCYTES % 7.9 % (4.4-11.3); NEUTROPHILS # (AUTO) 6.5 (2.1-6.9); NEUTROPHILS % 59.9 % (38.7-80.0); PLATELET COUNT 164 x10e3/uL (140-360); RED BLOOD COUNT 3.83 x10e6/uL (4.3-5.7); RED CELL DISTRIBUTION WIDTH 14.2 % (11.7-14.4)
[2021-04-17 06:39] LABS: INR 2.23
[2021-04-17 06:45] LABS: ANION GAP 15.5 mmol/L (8-16); CALCIUM 8.6 mg/dL (8.4-10.2); CREATININE, SERUM 0.92 mg/dL (0.72-1.25); POTASSIUM 3.5 mmol/L (3.5-5.1)
[2021-04-17] MEDS: BUDESONIDE/FORMOTEROL 160/4.5MCG INHALER INH SCH ×2 (06:50→21:10)
[2021-04-17 08:42] VITALS: BP 124/94
[2021-04-17] MEDS: LISINOPRIL 20 MG TAB PO SCH ×2 (08:48→17:28)
[2021-04-17] MEDS: PANTOPRAZOLE SOD 40 MG TABEC PO SCH (08:48)
[2021-04-17] MEDS: AMLODIPINE BESYLATE 10 MG TAB PO SCH (08:48)
[2021-04-17] MEDS: HYDROCODONE/APAP 10MG-325MG TAB PO PRN ×2 (09:11→18:14)
[2021-04-17] MEDS ORDERED: FUROSEMIDE 20 MG TAB PO SCH (09:15)
[2021-04-17] MEDS ORDERED: WARFARIN SOD 5 MG TAB PO ONE (10:30)
[2021-04-17] MEDS: POTASSIUM CHLORIDE 10MEQ EA PO SCH (11:21)
[2021-04-17] MEDS: FUROSEMIDE 40 MG TAB PO SCH (11:21)
[2021-04-17] MEDS ORDERED: IOPAMIDOL 370 MG/ML 200 ML INFUS..BTL INJ ONE (12:11)
[2021-04-17] MEDS ORDERED: SODIUM CHLORIDE 0.9% 100 ML ONE (12:11)
[2021-04-17 20:00] VITALS: BP 144/75
[2021-04-18] VITALS (8 sets, daily range): BP systolic 130–157; BP diastolic 68–78
[2021-04-18] MEDS: ALBUTEROL/IPRATROPIUM 3 ML NEB NEB SCH ×4 (00:44→20:16)
[2021-04-18] MEDS: PIPERACILLIN/TAZOBACTAM 4.5 GM in SODIUM CHLORIDE 0.9% 100 ML IV SCH ×3 (04:46→20:52)
[2021-04-18] MEDS: HYDROCODONE/APAP 10MG-325MG TAB PO PRN ×2 (04:46→18:44)
[2021-04-18 05:33] LABS: INR 1.89; PROTHROMBIN TIME 22.9 seconds (11.9-14.5)
[2021-04-18] MEDS: BUDESONIDE/FORMOTEROL 160/4.5MCG INHALER INH SCH ×2 (08:00→20:27)
[2021-04-18] MEDS: AMLODIPINE BESYLATE 10 MG TAB PO SCH (08:53)
[2021-04-18] MEDS: LISINOPRIL 20 MG TAB PO SCH ×2 (08:53→16:48)
[2021-04-18] MEDS: FUROSEMIDE 40 MG TAB PO SCH ×2 (08:53→12:45)
[2021-04-18] MEDS: PANTOPRAZOLE SOD 40 MG TABEC PO SCH (08:53)
[2021-04-18] MEDS: POTASSIUM CHLORIDE 10MEQ EA PO SCH ×2 (08:53→12:44)
[2021-04-18] MEDS ORDERED: WARFARIN SOD 3 MG TAB PO ONE (10:45)
[2021-04-18] MEDS ORDERED: ENOXAPARIN SODIUM INJ 100 MG/ML SYR SC ONE (10:45)
[2021-04-19] VITALS (8 sets, daily range): BP systolic 125–141; BP diastolic 65–75
[2021-04-19] MEDS: ALBUTEROL/IPRATROPIUM 3 ML NEB NEB SCH ×4 (01:28→19:22)
[2021-04-19] MEDS: HYDROCODONE/APAP 10MG-325MG TAB PO PRN ×2 (03:50→21:01)
[2021-04-19] MEDS: PIPERACILLIN/TAZOBACTAM 4.5 GM in SODIUM CHLORIDE 0.9% 100 ML IV SCH ×3 (03:55→20:30)
[2021-04-19 05:14] LABS: INR 1.72; PROTHROMBIN TIME 21.2 seconds (11.9-14.5)
[2021-04-19] MEDS ORDERED: SODIUM CHLORIDE 0.9% 1000ML 1,000 ML ONE (06:49)
[2021-04-19] MEDS: BUDESONIDE/FORMOTEROL 160/4.5MCG INHALER INH SCH ×2 (07:06→19:22)
[2021-04-19] MEDS: PANTOPRAZOLE SOD 40 MG TABEC PO SCH (08:33)
[2021-04-19] MEDS: AMLODIPINE BESYLATE 10 MG TAB PO SCH (08:34)
[2021-04-19] MEDS: FUROSEMIDE 40 MG TAB PO SCH ×2 (08:34→12:04)
[2021-04-19] MEDS: LISINOPRIL 20 MG TAB PO SCH ×2 (08:34→17:08)
[2021-04-19] MEDS: POTASSIUM CHLORIDE 10MEQ EA PO SCH ×2 (08:34→12:04)
[2021-04-19] MEDS ORDERED: WARFARIN SOD 5 MG TAB PO ONE (10:45)
[2021-04-19] MEDS: ENOXAPARIN SODIUM INJ 100 MG/ML SYR SC SCH ×2 (10:45→21:09)
[2021-04-19 15:03] LABS: ANION GAP 15.6 mmol/L (8-16); CALCIUM 8.6 mg/dL (8.4-10.2); CREATININE, SERUM 1.01 mg/dL (0.72-1.25); POTASSIUM 3.6 mmol/L (3.5-5.1)
[2021-04-20] VITALS (7 sets, daily range): BP systolic 124–150; BP diastolic 60–76
[2021-04-20] MEDS: ALBUTEROL/IPRATROPIUM 3 ML NEB NEB SCH ×4 (01:16→19:28)
[2021-04-20] MEDS: PIPERACILLIN/TAZOBACTAM 4.5 GM in SODIUM CHLORIDE 0.9% 100 ML IV SCH ×2 (04:53→12:40)
[2021-04-20 06:20] LABS: INR 1.57; PROTHROMBIN TIME 19.8 seconds (11.9-14.5)
[2021-04-20] MEDS: HYDROCODONE/APAP 10MG-325MG TAB PO PRN ×2 (06:55→20:45)
[2021-04-20] MEDS: BUDESONIDE/FORMOTEROL 160/4.5MCG INHALER INH SCH ×2 (07:01→19:28)
[2021-04-20] MEDS: FUROSEMIDE 40 MG TAB PO SCH ×2 (09:43→12:43)
[2021-04-20] MEDS: AMLODIPINE BESYLATE 10 MG TAB PO SCH (09:43)
[2021-04-20] MEDS: PANTOPRAZOLE SOD 40 MG TABEC PO SCH (09:43)
[2021-04-20] MEDS: POTASSIUM CHLORIDE 10MEQ EA PO SCH ×2 (09:43→12:43)
[2021-04-20] MEDS: LISINOPRIL 20 MG TAB PO SCH ×2 (09:44→16:50)
[2021-04-20] MEDS: ENOXAPARIN SODIUM INJ 100 MG/ML SYR SC SCH (09:44)
[2021-04-20] MEDS: APIXABAN 5 MG TABLET PO SCH (16:49)
[2021-04-21 00:47] VITALS: BP 135/68
[2021-04-21] MEDS: ALBUTEROL/IPRATROPIUM 3 ML NEB NEB SCH ×2 (01:06→07:02)
[2021-04-21 01:17] VITALS: BP 135/68
[2021-04-21 05:47] VITALS: BP 129/74
[2021-04-21 06:32] LABS: INR 1.69; PROTHROMBIN TIME 20.9 seconds (11.9-14.5)
[2021-04-21] MEDS: BUDESONIDE/FORMOTEROL 160/4.5MCG INHALER INH SCH (07:03)
[2021-04-21 08:29] VITALS: BP 131/76
[2021-04-21 08:43] VITALS: BP 131/76
[2021-04-21] MEDS: FUROSEMIDE 40 MG TAB PO SCH (09:12)
[2021-04-21] MEDS: PANTOPRAZOLE SOD 40 MG TABEC PO SCH (09:12)
[2021-04-21] MEDS: APIXABAN 5 MG TABLET PO SCH (09:12)
[2021-04-21] MEDS: LISINOPRIL 20 MG TAB PO SCH (09:13)
[2021-04-21] MEDS: POTASSIUM CHLORIDE 10MEQ EA PO SCH (09:13)
[2021-04-21] MEDS: AMLODIPINE BESYLATE 10 MG TAB PO SCH (09:13)
[2021-04-21 11:00] VITALS: BP 144/72
== END 2021-04-21 11:15 | disposition home or self-care (01) | DRG 175 ==
LOC: ER 11:16 → ERHOLD 15:38 → MED/SURG3 19:58
PROVIDERS: ADMIT Internal Medicine; ATTEND Internal Medicine
DX: I26.93 Single subsegmental thrombotic pulmonary embolism without acute cor pulmonale (principal); J18.9 Pneumonia, unspecified organism; J44.0 Chronic obstructive pulmonary disease with (acute) lower respiratory infection; Z68.43 Body mass index [BMI] 50.0-59.9, adult; E66.2 Morbid (severe) obesity with alveolar hypoventilation; R04.2 Hemoptysis; J44.1 Chronic obstructive pulmonary disease with (acute) exacerbation; R07.9 Chest pain, unspecified; G47.33 Obstructive sleep apnea (adult) (pediatric); I10 Essential (primary) hypertension; E66.01 Morbid (severe) obesity due to excess calories; Z96.0 Presence of urogenital implants; D64.9 Anemia, unspecified; N28.1 Cyst of kidney, acquired; R73.9 Hyperglycemia, unspecified; E88.09 Other disorders of plasma-protein metabolism, not elsewhere classified; Z87.442 Personal history of urinary calculi; Z88.2 Allergy status to sulfonamides; Z86.711 Personal history of pulmonary embolism; Z79.01 Long term (current) use of anticoagulants
CPT/HCPCS: 36415; 71046; 71260; 74176; 80048; 80053; 81001; 82550; 82553; 83605; 83880; 84484; 85025; 85379; 85610; 85730; 87086; 93005; 94640; 94799; 99251; 99284; J0456; J0696; J1100; J1650; J1885; J2270; J2405; J2543; J2920; J7030; J7050; Q9967; U0002

== ENCOUNTER → 2022-06-27 | Day surgery (SDC) | payer BC, MEDICARE ==
[2022-06-26 16:42] LABS: BASOPHILS % 0.3 % (0.0-1.0); EOSINOPHILS # (AUTO) 0.3 (0.0-0.4); EOSINOPHILS % 3.1 % (0.0-6.0); HEMATOCRIT 39.3 % (38.2-49.6); HEMOGLOBIN 11.4 g/dL (14.0-18.0); LYMPHOCYTES # (AUTO) 2.3 (1.0-3.2); MEAN CORPUSCULAR HEMOGLOBIN 22.5 pg (28-32); MEAN CORPUSCULAR VOLUME 77.5 fL (81-99); MONOCYTES # (AUTO) 0.8 (0.2-0.8); MONOCYTES % 8.5 % (4.4-11.3); NEUTROPHILS # (AUTO) 5.5 (2.1-6.9); NEUTROPHILS % 61.8 % (38.7-80.0); PLATELET COUNT 133 x10e3/uL (140-360); RED BLOOD COUNT 5.07 x10e6/uL (4.3-5.7); RED CELL DISTRIBUTION WIDTH 20.1 % (11.7-14.4)
[~2022-06-27] MED LIST changes: +ALBUTEROL INH; +ALBUTEROL NEB; +ELIQUIS5 MG PO; +FERROUS SULFAT325 M1 PO; +FLONASE ALLERG9.9 ML INH; +GLYCOPYRROLATE INJ 0.2 MG/ML VIAL ONE; +HYOSCYAMINE SULFATE 0.5 MG/ML INJ IV ONE; +IPRATROPIUM INH; +IPRATROPIUM NEB; +JANTOVEN3 MG PO; +LACTATED RINGER'S 1,000 ML ONE; +LIDOCAINE HCL 2% LOCAL INJ 5 ML SDV VIAL INJ ONE; +MAGNESIUM OXID400 MG PO; +METOCLOPRAMIDE HCL 10 MG/2ML VIAL ONE; +MULTI-VITAMIN1 EACH PO; +ONDANSETRON HCL INJ 2MG/ML 2ML 2 MG/ML VIAL ONE; +PERCOCET 10-321 EACH PO; +POVIDONE IODINE 0.05% 0.05 % ML PO ONE; +PROPOFOL IV EMULSION 10 MG/ML 20 ML VIAL ONE; +PROPOFOL IV EMULSION 50 ML IV ONE; +PSEUDOEPHEDRINE30 MG PO; +SYMBICORT 16010.2 GM INH; +VIT D3 PO; +[UNRECOGNIZED DRUG - OTHER] PO
[2022-06-27 16:10] VITALS: BP 149/81
== END | disposition home or self-care (01) ==
LOC: OR 11:58
PROVIDERS: ATTEND Internal Medicine Gastroenterology
DX: D50.9 Iron deficiency anemia, unspecified (principal); D12.4 Benign neoplasm of descending colon; K31.7 Polyp of stomach and duodenum; K22.81 Esophageal polyp; K29.50 Unspecified chronic gastritis without bleeding; K62.5 Hemorrhage of anus and rectum; K21.00 Gastro-esophageal reflux disease with esophagitis, without bleeding; K44.9 Diaphragmatic hernia without obstruction or gangrene; K57.30 Diverticulosis of large intestine without perforation or abscess without bleeding; K64.4 Residual hemorrhoidal skin tags; K64.8 Other hemorrhoids; I11.0 Hypertensive heart disease with heart failure; I50.9 Heart failure, unspecified; J44.9 Chronic obstructive pulmonary disease, unspecified; Z88.2 Allergy status to sulfonamides; Z01.810 Encounter for preprocedural cardiovascular examination; Z01.812 Encounter for preprocedural laboratory examination; Z79.02 Long term (current) use of antithrombotics/antiplatelets; Z79.899 Other long term (current) drug therapy; Z68.42 Body mass index [BMI] 45.0-49.9, adult; Z86.711 Personal history of pulmonary embolism
CPT/HCPCS: 36415; 43239; 43251; 45385; 85025; 93005; J1980; J2001; J2405; J2704 ×2; J2765; J7121; 45378